=== PATIENT | female | born 1985 | race American Indian/Alaskan Native ===

== ENCOUNTER 2018-02-24 22:36 | Observation (INO) | payer BC ==
--- NOTE | 2018-02-24 23:14 | ED PDOC ---
Arrival/HPI <Josias Jones - Last Filed: 02/25/18 01:28> - General Historian: Patient <Luís Cano - Last Filed: 02/27/18 09:49> - General Chief Complaint: ENT Problem Time Seen by Provider: 02/24/18 23:07 - History of Present Illness Narrative History of Present Illness (Text): 02/24/18 23:08 33 y/o female, pmh including HIV, penicillin allergy, c/o throat pain x 5 days. Pt. stated that she has chronic HIV, stopped her HIV medication about 6 months ago with last CD4 count undetectable about 6 months ago, not been following with any one. Pt. stated that she has throat pain x 5 days, painful to swallow which she has hard eating due to the thrush and pain, has not been eating for the past 3 days, didn't see any doctor and here for the evaluation, no coughing , no night sweat, no rash, no numbness or tingling, no other medical or psychological complaints. (Luís Cano) Past Medical History - Provider Review Nursing Documentation Reviewed: Yes - Infectious Disease Hx of Infectious Diseases: None - Psychiatric Hx Substance Use: No - Anesthesia Hx Anesthesia: No Hx Anesthesia Reactions: No Hx Malignant Hyperthermia: No <Luís Cano - Last Filed: 02/27/18 09:49> Family/Social History - Physician Review Nursing Documentation Reviewed: Yes Family/Social History: Unknown Family HX Smoking Status: Current Some Days Smoker Hx Alcohol Use: Yes Hx Substance Use: No <Luís Cano - Last Filed: 02/27/18 09:49> Allergies/Home Meds <Josias Jones - Last Filed: 02/25/18 01:28> <Luís Cano - Last Filed: 02/27/18 09:49> Allergies/Adverse Reactions: Allergies pcn Adverse Reaction (Uncoded 02/24/18 22:57) RASH Home Medications: Home Meds Medication Instructions Recorded Confirmed Elviteg/Cob/Emtri/Tenof Alafen 1 tab PO DAILY 02/24/18 02/24/18 [Genvoya Tablet] Review of Systems - Review of Systems Constitutional: absent: Fatigue, Fevers Eyes: absent: Vision Changes ENT: Sore Throat. absent: Hearing Changes Respiratory: absent: SOB, Cough Cardiovascular: absent: Chest Pain Gastrointestinal: absent: Abdominal Pain, Nausea, Vomiting Musculoskeletal: absent: Arthralgias, Back Pain Skin: absent: Rash, Pruritis, Skin Lesions Psychiatric: absent: Anxiety, Depression, Suicidal Ideation <Luís Cano Q - Last Filed: 02/27/18 09:49> Physical Exam Vital Signs Reviewed: Yes Temperature: Afebrile Blood Pressure: Normal Pulse: Tachycardic Respiratory Rate: Normal Appearance: Positive for: Well-Appearing, Non-Toxic, Comfortable Pain Distress: Moderate Mental Status: Positive for: Alert and Oriented X 3 - Systems Exam Head: Present: Atraumatic, Normocephalic Pupils: Present: PERRL Extroacular Muscles: Present: EOMI Conjunctiva: Present: Normal Ears: Present: NORMAL TM, Normal Canal. No: Erythema Mouth: Present: Moist Mucous Membranes Pharnyx: Present: Other (+visible oral thrush noted from the roof of the palate to the pharyngeal region). No: ERYTHEMA, EXUDATE, TONSILS ENLARGED Nose (External): Present: Atraumatic. No: Abrasion, Contusion, Laceration Nose (Internal): Present: Normal Inspection, No Active Bleeding. No: Rhinorrhea , Septal Hematoma, Epistaxis Neck: Present: Normal Range of Motion, Trachea Midline. No: Meningeal Signs, MIDLINE TENDERNESS, Paraspinal Tenderness, Lymphadenopathy Respiratory/Chest: Present: Clear to Auscultation, Good Air Exchange. No: Respiratory Distress, Accessory Muscle Use Cardiovascular: Present: Regular Rate and Rhythm, Normal S1, S2. No: Murmurs Abdomen: No: Tenderness, Distention, Peritoneal Signs, Rebound, Guarding Back: Present: Normal Inspection Upper Extremity: Present: Normal Inspection. No: Cyanosis, Edema Lower Extremity: Present: Normal Inspection. No: Edema Neurological: Present: GCS=15, CN II-XII Intact, Speech Normal, Motor Func Grossly Intact, Gait Normal, Memory Normal Skin: Present: Warm, Dry, Normal Color. No: Rashes Psychiatric: Present: Alert, Oriented x 3, Normal Insight, Normal Concentration <Luís Cano Q - Last Filed: 02/27/18 09:49> Vital Signs Temp Pulse Resp BP Pulse Ox 02/25/18 04:42 98.4 F 64 18 108/66 100 02/25/18 03:04 97.9 F 81 18 128/65 100 02/25/18 00:59 98.4 F 74 18 113/69 100 02/24/18 22:51 98.6 F 108 H 19 109/77 98 Medical Decision Making <Josias Jones - Last Filed: 02/25/18 01:28> - Lab Interpretations I have reviewed the lab results: Yes - RAD Interpretation Summer Counselor: Radiologist <Luís Cano - Last Filed: 02/27/18 09:49> ED Course and Treatment: 02/24/18 23:19 Differential: Oral thrush vs. PCP pneumonia vs. sepsis -Labs/blood culture -Chest xray -IVF/toradol/nystatin -Observe and reassess 02/25/18 00:51 -Urine hcg is negative -Chest xray: No consolidation. -Labs are non-significant -UA show no UTI -Lactic acid within normal limit. -Pt. is po intolerance with oral thrush, HIV with CD4 likely uncontrolled as she has oral thrush, needs GI and infectious disease consult with continuous IV hydration. -Paging the medicine electronic systems security assessment Dr. Newman. 02/25/18 01:31 -I spoke to DR. Newman, about the case/labs/radiology result, request Dr. Olson (GI) and Dr. Varner (ID) for the consults, agreed with treatment and admission to her service -Dr. Jones will put in the admission order. -D5W with normal saline ordered. (Luís Cano) - Lab Interpretations Lab Results: 02/24/18 23:50 02/24/18 23:50 Lab Results 02/24/18 23:50: Urine Color Yellow, Urine Appearance Clear, Urine pH 6.0, Ur Specific Holmes >= 1.030, Urine Protein 30 H, Urine Glucose (UA) Negative, Urine Ketones 15 H, Urine Blood Negative, Urine Nitrate Negative, Urine Bilirubin Negative, Urine Urobilinogen 1.0 H, Ur Leukocyte Esterase Negative, Urine RBC 2 - 5, Urine WBC 0 - 2, Ur Epithelial Cells 6 - 8, Urine Bacteria Mod , Urine Other Mucus 02/24/18 23:50: pO2 57 H, VBG pH 7.37, VBG pCO2 36.0 L, VBG HCO3 20.8 L, VBG Total CO2 21.9 L, VBG O2 Sat (Calc) 91.0 H, VBG Base Excess -3.9 L, VBG Potassium 3.8, Sodium 147.0, Chloride 115.0 H, Glucose 86, Lactate 1.2, FiO2 21.0, Venous Blood Potassium 3.8 02/24/18 23:50: WBC 6.2, RBC 4.66, Hgb 12.8, Hct 35.8 L, MCV 76.8 L, MCH 27.5, MCHC 35.8, RDW 15.4 H, Plt Count 203, MPV 10.6, Gran % 47.0 L, Lymph % (Auto) 42.7 H, Roseau % (Auto) 7.7 H, Eos % (Auto) 2.4, Baso % (Auto) 0.2, Gran # 2.93, Lymph # (Auto) 2.7, Roseau # (Auto) 0.5, Eos # (Auto) 0.2, Baso # (Auto) 0.01 02/24/18 23:50: Sodium 149 H, Chloride 112 H, Potassium 3.8, Carbon Dioxide 19 L , Anion Gap 22 H, BUN 23 H, Creatinine 0.8, Est GFR ( Amer) > 60, Est GFR (Non-Af Amer) > 60, Random Glucose 90, Calcium 9.7, Magnesium 2.1, Total Bilirubin 0.7, AST 20, ALT 19, Alkaline Phosphatase 99, Total Protein 9.9 H, Albumin 5.0 H, Globulin 4.8, Albumin/Globulin Ratio 1.0 L - RAD Interpretation Radiology Orders: 02/24/18 23:15 CHEST TWO VIEWS (PA/LAT) [RAD] Stat Lungs: Unremarkable. No consolidation. Pleural space: Unremarkable. No pneumothorax. Heart: Unremarkable. No cardiomegaly. Mediastinum: Unremarkable. Bones/joints: Unremarkable. IMPRESSION: No consolidation. Thank you for allowing us to participate in the care of your patient. Dictated and Authenticated by: Stormy Vazquez MD 02/25/2018 12:49 AM Eastern Time ([place] & [place]) (Luís Cano) - Medication Orders Current Medication Orders: Discontinued Medications Al Hydrox/Mg Hydrox/Simethicone 30 ml/Diphenhydramine HCl 75 mg/Lidocaine 30 ml 0 ml PO Q2H PRN PRN Reason: Mouth/Throat Pain Last Admin: 02/26/18 09:10 Dose: 10 ml Fluconazole (Diflucan) 100 mg PO DAILY [facility] PRN Reason: Protocol Last Admin: 02/26/18 09:11 Dose: 100 mg Home Med (Home Med) 1 unit PO DAILY [facility] Last Admin: 02/26/18 09:11 Dose: Sodium Chloride (Sodium Chloride 0.9%) 1,000 mls @ 100 mls/hr IV .Q10H [facility] Last Admin: 02/25/18 00:40 Dose: 100 mls/hr eMAR Start Stop Document 02/25/18 00:40 (Rec: 02/25/18 00:41 [email or web address] Intravenous Solution Start Date 02/25/18 Start Time 00:40 Dextrose/Sodium Chloride (Dextrose 5%/0.45% Ns 1000 Ml) 1,000 mls @ 125 mls/hr IV .Q8H [facility] Last Admin: 02/26/18 09:11 Dose: Ketorolac Tromethamine (Toradol) 30 mg IVP STAT STA Stop: 02/24/18 23:16 Last Admin: 02/25/18 00:39 Dose: 30 mg [facility] Pain Assessment Document 02/25/18 00:39 (Rec: 02/25/18 00:40 [email or web address]) Pain Reassessment Is this a pain reassessment? No Sleep Is patient sleeping during reassessment? No Presence of Pain Presence of Pain Yes Pain Scale Used Pain Scale Used Numeric IVP Administration Document 02/25/18 00:39 (Rec: 02/25/18 00:40 [id number] Charges for Administration # of IVP Administrations 1 Re-Assess: MAR Pain Assessment Document 02/25/18 01:39 (Rec: 02/25/18 01:53 [email or web address]) Pain Reassessment Is this a pain reassessment? Yes Sleep Is patient sleeping during reassessment? No Presence of Pain Presence of Pain Yes Pain Scale Used Pain Scale Used Numeric Ketorolac Tromethamine (Toradol) 30 mg IVP STAT STA Stop: 02/25/18 09:32 Last Admin: 02/25/18 09:51 Dose: 30 mg MAR Pain Assessment Document 02/25/18 09:51 [place] (Rec: 02/25/18 09:51 [id number] Pain Reassessment Is this a pain reassessment? No Presence of Pain Presence of Pain Yes Pain Scale Used Pain Scale Used Numeric Location Pain Location Body Site Throat IVP Administration Document 02/25/18 09:51 SD (Rec: 02/25/18 09:51 [id number] Charges for Administration # of IVP Administrations 1 Re-Assess: MARLEN Pain Assessment Document 02/25/18 10:51 SD (Rec: 02/25/18 11:47 SD [id number]) Pain Reassessment Is this a pain reassessment? Yes Sleep Is patient sleeping during reassessment? Yes Nystatin (Nystatin Oral Susp) 5 ml PO QID KASH Nystatin (Nystatin Oral Susp) 5 ml PO STAT STA Stop: 02/25/18 00:20 Last Admin: 02/25/18 00:42 Dose: 5 ml Nystatin (Nystatin Oral Susp) 5 ml PO QID [facility]ASH Last Admin: 02/26/18 13:13 Dose: 5 ml Pneumococcal Polyvalent Vaccine (Pneumovax 23 Vaccine) 0.5 ml IM .ONCE ONE Stop: 02/25/18 09:16 Last Admin: 02/25/18 09:51 Dose: Immunization Registry Document 02/25/18 09:51 SD (Rec: 02/25/18 09:51 [id number] Immunization Registry Consent Date 02/24/18 - PA / BLEACH MIXER / Resident Statement GODFREY has reviewed & agrees with the documentation as recorded. GODFREY has examined the patient and agrees with the treatment plan. <Josias Jones - Last Filed: 02/25/18 01:28> - PA / BLEACH MIXER / Resident Statement GODFREY has reviewed & agrees with the documentation as recorded. GODFREY has examined the patient and agrees with the treatment plan. <Luís Cano - Last Filed: 02/27/18 09:49> Disposition/Present on Arrival <Josias Jones - Last Filed: 02/25/18 01:28> - Present on Arrival Any Indicators Present on Arrival: No History of DVT/PE: No History of Uncontrolled Diabetes: No Urinary Catheter: No History of Decub. Ulcer: No History Surgical Site Infection Following: None - Disposition Have Diagnosis and Disposition been Completed?: Yes Disposition Time: 23:20 Patient Plan: Admission, Observation <Luís Cano - Last Filed: 02/27/18 09:49> - Disposition Diagnosis: HIV (human immunodeficiency virus infection), Oral thrush, Odynophagia, Dysphagia Disposition: HOSPITALIZED Condition: STABLE
[2018-02-24] MEDS ORDERED: Sodium Chloride 0.9% 1,000 ML IV SCH (23:15)
[2018-02-25 00:06] LABS: BASO # 0.01 K/mm3 (0.0-2.0); BASO % 0.2 % (0.0-3.0); EOS # 0.2 (0.0-0.7); EOS % 2.4 % (1.5-5.0); GRAN # 2.93 (1.4-6.5); HEMOGLOBIN 12.8 g/dL (12.0-16.0); LYMPH # 2.7 (1.2-3.4); LYMPH % 42.7 % (22.0-35.0); MEAN CELL VOLUME 76.8 fl (80.0-105.0); MEAN CORPUSCULAR HEMOGLOBIN 27.5 pg (25.0-35.0); MEAN CORPUSCULAR HGB CONC 35.8 g/dl (31.0-37.0); MEAN PLATELET VOLUME 10.6 fl (7.0-11.0); MONO # 0.5 (0.1-0.6); MONO % 7.7 % (1.0-6.0); RBC 4.66 10^6/uL (3.5-6.1); RED CELL DISTRIBUTION WIDTH 15.4 % (11.5-14.5); VENOUS BLOOD GAS BASE EXCESS -3.9 mmol/L (0.0-2.0); VENOUS BLOOD GAS PO2 57 mm/Hg (30-55); VENOUS BLOOD PH 7.37 (7.32-7.43); WHITE BLOOD COUNT 6.2 10^3/ul (4.5-11.0)
[2018-02-25 00:07] LABS: URINE BILIRUBIN NEGATIVE (NEGATIVE); URINE BLOOD NEGATIVE (NEGATIVE); URINE GLUCOSE (UA) NEGATIVE (NEGATIVE); URINE LEUKOCYTE ESTERASE NEGATIVE Leu/uL (NEGATIVE); URINE PROTEIN 30 mg/dL (<30 mg/dL)
[2018-02-25 00:09] LABS: ALT/SGPT 19 U/L (7-56); AST/SGOT 20 U/L (14-36); BLOOD UREA NITROGEN 23 mg/dL (7-21); CALCIUM 9.7 mg/dL (8.4-10.5); GFR AFRICAN-AMERICAN > 60; GFR NON-AFRICAN AMERICAN > 60; URINE APPEARANCE CLEAR (CLEAR); URINE COLOR YELLOW (YELLOW)
[2018-02-25] MEDS ORDERED: Nystatin 100,000 Units/ml Oral Susp 5 ml UD PO STA (00:19)
[2018-02-25 00:35] LABS: URINE BACTERIA MOD (NEG); URINE WBC 0 - 2 /hpf (0-6)
[2018-02-25] MEDS: Dextrose 5%/0.45% NS 1,000 ML IV SCH ×3 (01:52→17:08)
[2018-02-25] MEDS ORDERED: Pneumococcal 23-Valent Vaccine IM ONE (09:15)
[2018-02-25] MEDS ORDERED: Nystatin 100,000 Units/ml Oral Susp 5 ml UD PO SCH (10:00)
--- NOTE | 2018-02-25 13:33 | CP.PCM.CON ---
History of Present Illness - History of Present Illness History of Present Illness: Infectious Disease Consultation: February 25, 2018 33 yo female with extensive PMHx of HIV and PCN allergy. Patient presenting with 5 days of throat pain with pain on swallowing and sign of oral thrush. Patient claims that she was CD4 count undetectable 6 months ago. The patient also claims that she stopped her HAART 6 months ago. She denies fevers, chills , nausea, cough, night sweats. PMHx: HIV (born with HIV) PCN allergy PSHx: none given Allergies: PCN - rash Social Hx: EtOH use Tobacco use No illicit drug use Active Medications Dextrose/Sodium Chloride (Dextrose 5%/0.45% Ns 1000 Ml) 1,000 mls @ 125 mls/hr IV .Q8H [facility] Last Admin: 02/25/18 09:52 Dose: Not Given Family Hx: none given ROS: No reported fevers, chills, nausea, vomiting, diarrhea, chest pain, abdominal pain, melena, hematuria, hematemesis, hematochezia, depression, anxiety, vision loss, hearing loss. Has Throat pain, difficulty swallowing. Past Patient History - Infectious Disease Hx of Infectious Diseases: None - Past Social History Smoking Status: Light Smoker < 10 Cigarettes Daily - HEENT Hx Difficulty Chewing: Yes (Thrush) - HEMATOLOGICAL/ONCOLOGICAL Hx AIDS: Yes - MUSCULOSKELETAL/RHEUMATOLOGICAL Hx Falls: No - PSYCHIATRIC Hx Substance Use: Yes - SURGICAL HISTORY Hx Surgeries: Yes (Cyst removal 4 years ago) - ANESTHESIA Hx Anesthesia: No Hx Anesthesia Reactions: No Hx Malignant Hyperthermia: No Meds Allergies/Adverse Reactions: Allergies Allergy/AdvReac Type Severity Reaction Status Date / Time pcn AdvReac RASH Uncoded 02/24/18 22:57 - Medications Medications: Current Medications Dextrose/Sodium Chloride (Dextrose 5%/0.45% Ns 1000 Ml) 1,000 mls @ 125 mls/hr IV .Q8H [facility] Last Admin: 02/25/18 09:52 Dose: Not Given Physical Exam - Constitutional Appears: Non-toxic, No Acute Distress, Chronically Ill - Head Exam Head Exam: ATRAUMATIC, NORMOCEPHALIC - Eye Exam Eye Exam: EOMI, PERRL Pupil Exam: NORMAL ACCOMODATION, PERRL - ENT Exam ENT Exam: Mucous Membranes Moist Additional comments: oral thrush on roof of palate to pharyngeal region to back of throat. Thick layering of thrush. - Neck Exam Neck exam: Positive for: Full Rom, Normal Inspection - Respiratory Exam Respiratory Exam: Clear to Auscultation Bilateral, NORMAL BREATHING PATTERN. absent: Rales, Rhonchi, Wheezes - Cardiovascular Exam Cardiovascular Exam: REGULAR RHYTHM, RRR, +S1, +S2 - GI/Abdominal Exam GI & Abdominal Exam: Normal Bowel Sounds, Soft. absent: Distended, Tenderness - Extremities Exam Extremities exam: Positive for: full ROM, normal inspection - Neurological Exam Neurological exam: Alert, CN II-XII Intact, Oriented x3 - Psychiatric Exam Psychiatric exam: Normal Affect, Normal Mood - Skin Skin Exam: Intact, Normal Color Results - Vital Signs Recent Vital Signs: Last Vital Signs Temp 97.9 F 02/25/18 08:36 Pulse 79 02/25/18 08:36 Resp 18 02/25/18 08:49 BP 112/69 02/25/18 08:36 Pulse Ox 100 02/25/18 08:36 - Labs Result Diagrams: 02/24/18 23:50 02/24/18 23:50 Assessment & Plan - Assessment and Plan (Free Text) Assessment: 33 yo female not on HARRT for HIV. The patient with oral thrush. The patient likely with uncontrolled HIV disease. Recently restarted Genvoya for HARRT therapy. Sees Dr. Delong in [place] for HIV care. Thick layer of oral thrush. Start Nystatin Swish and Swallow. Start Magic Mouthwash. Will contact Dr. Delong to see what her latest numbers are. She states she recently had this bloodwork done for HIV Viral load and CD4 count. Supportive care. Thank you for allowing me to participate in the care of the patient, we will follow with you.
[2018-02-25] MEDS ORDERED: Home Med 1 UNIT PO SCH (14:00)
[2018-02-25] MEDS: Nystatin 100,000 Units/ml Oral Susp 5 ml UD PO SCH ×3 (14:33→21:01)
[2018-02-25] MEDS: Aluminum Hydroxide/Magnesium 30 ML, DiphenhydrAMINE 75 MG, Lidocaine 2% Viscous 30 ML PO PRN ×2 (15:16→23:40)
--- NOTE | 2018-02-25 16:04 | CP.PCM.CON ---
<Oly Carrington - Last Filed: 02/25/18 16:00> History of Present Illness - History of Present Illness History of Present Illness: GI Fellow PGY5 Consult Note This is a 33 y/o female with pmhx of HIV noncompliant with medication for 6 months c/o throat pain x 5 days. Pt. stated that she has chronic HIV, stopped her HIV medication about 6 months ago with last CD4 count undetectable about 6 months ago, not been following with any one. She reports painful to swallow which she has hard eating due to the thrush and pain, has not been eating for the past 3 days, didn't see any doctor and here for the evaluation, no coughing , no night sweat, no rash, no numbness or tingling, no other medical or psychological complaints. ROS: A 12pt ROS was negative except as above PmHx: A sstated above PsHX: Denies FHx: Neg for colon cancer SHx: Denies etoh, drugs, tobacco Past Patient History - Infectious Disease Hx of Infectious Diseases: None - Past Social History Smoking Status: Light Smoker < 10 Cigarettes Daily - HEENT Hx Difficulty Chewing: Yes (Thrush) - HEMATOLOGICAL/ONCOLOGICAL Hx AIDS: Yes - MUSCULOSKELETAL/RHEUMATOLOGICAL Hx Falls: No - PSYCHIATRIC Hx Substance Use: Yes - SURGICAL HISTORY Hx Surgeries: Yes (Cyst removal 4 years ago) - ANESTHESIA Hx Anesthesia: No Hx Anesthesia Reactions: No Hx Malignant Hyperthermia: No Meds Allergies/Adverse Reactions: Allergies Allergy/AdvReac Type Severity Reaction Status Date / Time pcn AdvReac RASH Uncoded 02/24/18 22:57 - Medications Medications: Current Medications Al Hydrox/Mg Hydrox/Simethicone 30 ml/Diphenhydramine HCl 75 mg/Lidocaine 30 ml 0 ml PO Q2H PRN PRN Reason: Mouth/Throat Pain Last Admin: 02/25/18 15:16 Dose: 15 ml Home Med (Home Med) 1 unit PO DAILY [facility] Dextrose/Sodium Chloride (Dextrose 5%/0.45% Ns 1000 Ml) 1,000 mls @ 125 mls/hr IV .Q8H [facility] Last Admin: 02/25/18 09:52 Dose: Not Given Nystatin (Nystatin Oral Susp) 5 ml PO QID [facility] Last Admin: 02/25/18 14:33 Dose: 5 ml Physical Exam - Constitutional Appears: Non-toxic, No Acute Distress - Head Exam Head Exam: ATRAUMATIC, NORMAL INSPECTION, NORMOCEPHALIC - Eye Exam Eye Exam: EOMI, Normal appearance - ENT Exam ENT Exam: Mucous Membranes Moist Additional comments: oral thrush - Neck Exam Neck exam: Positive for: Full Rom - Respiratory Exam Respiratory Exam: Clear to Auscultation Bilateral, NORMAL BREATHING PATTERN - Cardiovascular Exam Cardiovascular Exam: REGULAR RHYTHM, RRR, +S1, +S2 - GI/Abdominal Exam GI & Abdominal Exam: Normal Bowel Sounds, Soft - Rectal Exam Rectal Exam: Deferred - Extremities Exam Extremities exam: Positive for: full ROM, normal inspection - Back Exam Back exam: NORMAL INSPECTION - Neurological Exam Neurological exam: Oriented x3 - Psychiatric Exam Psychiatric exam: Normal Affect, Normal Mood - Skin Skin Exam: Dry, Intact, Normal Color, Warm Results - Vital Signs Recent Vital Signs: Last Vital Signs Temp 98.1 F 02/25/18 15:36 Pulse 61 02/25/18 15:36 Resp 18 02/25/18 15:36 BP 108/64 02/25/18 15:36 Pulse Ox 99 02/25/18 15:36 - Labs Result Diagrams: 02/24/18 23:50 02/24/18 23:50 Assessment & Plan - Assessment and Plan (Free Text) Assessment: This is a 33yF with HIV presenting with oral thrush and dysphagia/odynophagia for 5 days. 1. Dysphagia/odynophagia 2. Oral thrush 3. HIV Plan: -Continue supportive care -Recommend ID cs -Start Diflucan 100mg tab daily for possible fungal infection of esophagus -Nystatin for oral thrush -ID cs -Monitor clinical course, if no improvement may need EGD for further evaluation -Will continue to follow closely <Mary Olson V - Last Filed: 02/25/18 21:29> Meds - Medications Medications: Current Medications Al Hydrox/Mg Hydrox/Simethicone 30 ml/Diphenhydramine HCl 75 mg/Lidocaine 30 ml 0 ml PO Q2H PRN PRN Reason: Mouth/Throat Pain Last Admin: 02/25/18 15:16 Dose: 15 ml Fluconazole (Diflucan) 100 mg PO DAILY [facility] PRN Reason: Protocol Last Admin: 02/25/18 17:08 Dose: 100 mg Home Med (Home Med) 1 unit PO DAILY [facility] Dextrose/Sodium Chloride (Dextrose 5%/0.45% Ns 1000 Ml) 1,000 mls @ 125 mls/hr IV .Q8H [facility] Last Admin: 02/25/18 17:08 Dose: 125 mls/hr Nystatin (Nystatin Oral Susp) 5 ml PO QID [facility] Last Admin: 02/25/18 21:01 Dose: 5 ml Results - Vital Signs Recent Vital Signs: Last Vital Signs Temp 98.1 F 02/25/18 15:36 Pulse 61 02/25/18 15:36 Resp 18 02/25/18 15:36 BP 108/64 02/25/18 15:36 Pulse Ox 99 02/25/18 15:36 - Labs Result Diagrams: 02/24/18 23:50 02/24/18 23:50 Attending/Attestation - Attestation I have personally seen and examined this patient.: Yes I have fully participated in the care of the patient.: Yes I have reviewed all pertinent clinical information: Yes Notes (Text): This is an addendum to GI consult report dictated by the GI Fellow.The patient was seen and examined earlier. Medical records, lab studies, imagings were reviewed. Last 24 hours events reviewed. Agreed with the above treatment plan as outlined in GI Fellow 's notes the with the addition of the following on examination patient has significant oral thrush Complains of odynophagia and dysphagia Poorly compliant Need ID evaluation and followup We'll consider EGD if patient fails to improve otherwise would recommend elective EGD 02/25/18 21:24
[2018-02-25 22:45] VITALS: O2SAT 100
[2018-02-26] MEDS: Dextrose 5%/0.45% NS 1,000 ML IV SCH ×2 (04:07→09:11)
[2018-02-26 08:06] LABS: BLOOD UREA NITROGEN 14 mg/dL (7-21); CALCIUM 8.7 mg/dL (8.4-10.5); GFR AFRICAN-AMERICAN > 60; GFR NON-AFRICAN AMERICAN > 60
[2018-02-26 08:23] VITALS: BP 103/64; PULSE 61; RESP 20; TEMP 97.4
[2018-02-26] MEDS: Aluminum Hydroxide/Magnesium 30 ML, DiphenhydrAMINE 75 MG, Lidocaine 2% Viscous 30 ML PO PRN (09:10)
[2018-02-26] MEDS: Nystatin 100,000 Units/ml Oral Susp 5 ml UD PO SCH ×2 (09:11→13:13)
[2018-02-26] MEDS ORDERED: Home Med 1 UNIT PO SCH (10:00)
--- NOTE | 2018-02-26 14:04 | CP.PCM.PN ---
<Oly Carrington - Last Filed: 02/26/18 14:01> Subjective - Date & Time of Evaluation Date of Evaluation: 02/26/18 Time of Evaluation: 11:00 - Subjective Subjective: GI Fellow PGY5 Progress Note Pt seen and evaluated at bedside, pt doing better no issues taking liquid diet. Pt requesting to go home. ROS: A 12pt ROS was negative except as above. Objective - Vital Signs/Intake and Output Vital Signs (last 24 hours): Temp Pulse Resp BP Pulse Ox 97.4 F L 61 20 103/64 100 02/26/18 06:00 02/26/18 06:00 02/26/18 06:00 02/26/18 06:00 02/26/18 06:00 Intake and Output: 02/26/18 02/26/18 06:59 18:59 Intake Total 1320 Balance 1320 - Medications Medications: Current Medications Al Hydrox/Mg Hydrox/Simethicone 30 ml/Diphenhydramine HCl 75 mg/Lidocaine 30 ml 0 ml PO Q2H PRN PRN Reason: Mouth/Throat Pain Last Admin: 02/26/18 09:10 Dose: 10 ml Fluconazole (Diflucan) 100 mg PO DAILY [facility], [facility]1983 PRN Reason: Protocol Last Admin: 02/26/18 09:11 Dose: 100 mg Home Med (Home Med) 1 unit PO DAILY [facility], [facility]1983 Last Admin: 02/26/18 09:11 Dose: Not Given Dextrose/Sodium Chloride (Dextrose 5%/0.45% Ns 1000 Ml) 1,000 mls @ 125 mls/hr IV .Q8H [facility], [facility]1983 Last Admin: 02/26/18 09:11 Dose: Not Given Nystatin (Nystatin Oral Susp) 5 ml PO QID [facility] Last Admin: 02/26/18 13:13 Dose: 5 ml - Labs Labs: 02/26/18 07:00 - Constitutional Appears: Non-toxic, No Acute Distress - Head Exam Head Exam: ATRAUMATIC, NORMAL INSPECTION, NORMOCEPHALIC - Eye Exam Eye Exam: EOMI, Normal appearance, PERRL Pupil Exam: NORMAL ACCOMODATION - ENT Exam ENT Exam: Mucous Membranes Moist, Normal Exam - Neck Exam Neck Exam: Full ROM, Normal Inspection - Respiratory Exam Respiratory Exam: Clear to Ausculation Bilateral, NORMAL BREATHING PATTERN - Cardiovascular Exam Cardiovascular Exam: REGULAR RHYTHM - GI/Abdominal Exam GI & Abdominal Exam: Soft, Normal Bowel Sounds - Rectal Exam Rectal Exam: Deferred - Extremities Exam Extremities Exam: Full ROM, Normal Inspection - Back Exam Back Exam: NORMAL INSPECTION - Neurological Exam Neurological Exam: Alert, Awake, Oriented x3 - Psychiatric Exam Psychiatric exam: Normal Affect, Normal Mood - Skin Skin Exam: Dry, Intact, Normal Color, Warm Assessment and Plan - Assessment and Plan (Free Text) Assessment: This is a 33yF with HIV presenting with oral thrush and dysphagia/odynophagia for 5 days. 1. Dysphagia/odynophagia 2. Oral thrush 3. HIV Plan: -Continue supportive care -Continue Diflucan 100mg tab daily for possible fungal infection of esophagus for two weeks -Nystatin for oral thrush -Advance to pureed diet -Monitor clinical course, if no improvement may need EGD for further evaluation as an outpt -ID for HIV treatment <Mary Olson V - Last Filed: 02/26/18 22:38> Objective - Vital Signs/Intake and Output Vital Signs (last 24 hours): Temp Pulse Resp BP Pulse Ox 97.4 F L 61 20 103/64 100 02/26/18 06:00 02/26/18 06:00 02/26/18 06:00 02/26/18 06:00 02/26/18 06:00 Intake and Output: 02/26/18 02/27/18 18:59 06:59 Intake Total 840 Balance 840 - Labs Labs: 02/26/18 07:00 Attending/Attestation - Attestation I have personally seen and examined this patient.: Yes I have fully participated in the care of the patient.: Yes I have reviewed all pertinent clinical information, including history, physical exam and plan: Yes Notes (Text): This is an addendum to GI progress report dictated by the GI Fellow.The patient was seen and examined earlier. Medical records, lab studies, imagings were reviewed. Last 24 hours events reviewed. Agreed with the above treatment plan as outlined in GI Fellow 's notes the with the addition of the following patient was able to tolerate liquid diet discussed with the nursing staff to increase the diet to puee diet with assistance On diflucan Patient would benefit from elective EGD earlier if patient remains symptomatic and no significant improvemnt with anti fungal therapy. Need ID followup 02/26/18 22:31
--- NOTE | 2018-02-26 16:37 | HP ---
DATE OF EXAM: 02/25/2018 HISTORY OF PRESENT ILLNESS: This 33-year-old female was examined at her bedside. She was admitted to the [facility] (Formerly [facility]) after presenting to the ER complaining of inability to swallow food or fluids for 5 days. Past history is significant for HIV, penicillin allergy and persistent throat pain for the past 5 days. She has chronic HIV. She stopped her HIV medications 6 months ago and discontinued her infectious disease followup. When she could no longer swallow or tolerate any p.o. food or fluids, she presented to ER and then was noted to have thrush involving her entire throat and posterior pharynx. She was admitted for further evaluation of the above and is ordered to receive consultations with Infectious Disease and GI. At present, she is receiving IV fluids. She is having great difficulty swallowing and has been ordered to have nystatin oral suspension 5 mL p.o. four times a day. OUTPATIENT MEDICATIONS: None. ALLERGIES: SHE ADMITS ALLERGY TO PENICILLIN. 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 She is a smoker, a social drinker. Denies IV substance abuse. REVIEW OF SYSTEMS: Constitutional review: Denied fever or chills. Head: No headache or seizure. Eye review: No change in visual acuity. Ear review: No hearing loss. Throat review: Great difficulty with swallowing any food, fluid or liquid. Cardiac review: No chest pain. Pulmonary: No cough. No hemoptysis. GI: No hematemesis. No melena. : No dysuria. Skin: No rash. Vascular: No claudication. Psychological: Alert. Denies anxiety. Neuro: No knowledge of stroke. PHYSICAL EXAMINATION: VITAL SIGNS: Temperature 98.1, respirations 18, pulse 61, blood pressure 108/64 with pulse ox 99% on room air. HEENT: Head: Normocephalic, atraumatic. Eyes: No icterus. Ears: Clear. Throat: Significant for thrush. NECK: Supple. HEART: S1, S2. LUNGS: Clear. ABDOMEN: Soft. EXTREMITIES: No edema. SKIN: No rash. VASCULAR: Legs warm to touch. PSYCHOLOGICAL: Alert and oriented x3. NEURO: Intact. LABORATORY DATA: White count 6200, hemoglobin 12.8, hematocrit 35.8, platelets 203,000. Sodium 149, K 3.8, chloride 112, bicarb 19, BUN 23, creatinine 0.8, random blood sugar 90, bilirubin 0.7, AST 20, ALT 19, alk phos 99. Urinalysis showed moderate bacteria. Chest x-ray was reviewed. It showed lungs are inflated and clear. There was no evidence of pleural effusion, no pneumothorax, no infiltrates. IMPRESSION: A 33-year-old female with history of human immunodeficiency virus, who discontinued medical followup and outpatient medications for her human immunodeficiency virus, now admitted with thrush and inability to swallow p.o. fluids with evidence of hypernatremia and mild clinical dehydration. PLAN: My plans at present are to obtain consultations with Dr. Benny Varner from Infectious Disease as well as Dr. Mary Olson from GI. She is ordered to have nystatin swish and swallow 5 mL p.o. four times a day, Diflucan 100 mg p.o. daily, dextrose D5 0.45 saline at 125 mL/hour. She will continue with Amphojel and lidocaine and Maalox swish and spit every 2 hours p.r.n. for oral hygiene relief. The patient will await GI evaluation for decision on dietary management. She is ordered to have a basic metabolic panel in the a.m. She is anxious for discharge and has been explained that this will need to be cleared by GI and Infectious Disease and greater than 75 minutes was spent in the care and management, review of labs, orders, x-rays and outlining of medical therapy for this patient today. All questions were answered. Bailey Newman MD MTDD
--- NOTE | 2018-02-26 16:58 | CP.PCM.PN ---
Subjective - Date & Time of Evaluation Date of Evaluation: 02/26/18 Time of Evaluation: 14:00 - Subjective Subjective: Infectious Disease Follow Up: February 26, 2018 33 yo female with extensive PMHx of HIV and PCN allergy. Patient presenting with 5 days of throat pain with pain on swallowing and sign of oral thrush. Patient claims that she was CD4 count undetectable 6 months ago. The patient also claims that she stopped her HAART 6 months ago. She denies fevers, chills , nausea, cough, night sweats. Mild improvement visually to thrush. Patient states less pain and a little easier to swallow now. Objective - Vital Signs/Intake and Output Vital Signs (last 24 hours): Temp Pulse Resp BP Pulse Ox 97.4 F L 61 20 103/64 100 02/26/18 06:00 02/26/18 06:00 02/26/18 06:00 02/26/18 06:00 02/26/18 06:00 Intake and Output: 02/26/18 02/26/18 06:59 18:59 Intake Total 1320 840 Balance 1320 840 - Labs Labs: 02/26/18 07:00 - Constitutional Appears: Non-toxic, No Acute Distress, Chronically Ill - Head Exam Head Exam: ATRAUMATIC, NORMOCEPHALIC - Eye Exam Eye Exam: EOMI, PERRL Pupil Exam: NORMAL ACCOMODATION, PERRL - ENT Exam ENT Exam: Mucous Membranes Moist, Normal External Ear Exam, TM's Normal Bilaterally - Neck Exam Neck Exam: Full ROM, Normal Inspection Additional comments: Still thick oral thrush on upper palate and posterior tongue. mild to moderate improvement compared to yesterday. - Respiratory Exam Respiratory Exam: Clear to Ausculation Bilateral, NORMAL BREATHING PATTERN. absent: Rales, Rhonchi, Wheezes - Cardiovascular Exam Cardiovascular Exam: REGULAR RHYTHM, RRR, +S1, +S2 - GI/Abdominal Exam GI & Abdominal Exam: Soft, Normal Bowel Sounds. absent: Distended, Tenderness - Extremities Exam Extremities Exam: Full ROM, Normal Inspection - Neurological Exam Neurological Exam: Alert, Awake, CN II-XII Intact, Oriented x3 - Psychiatric Exam Psychiatric exam: Normal Affect, Normal Mood - Skin Skin Exam: Intact, Normal Color Assessment and Plan - Assessment and Plan (Free Text) Assessment: 33 yo female not on HARRT for HIV. The patient with oral thrush. The patient likely with uncontrolled HIV disease. Recently restarted Genvoya for HARRT therapy. Sees Dr. Delong in [place] for HIV care. Thick layer of oral thrush. Start Nystatin Swish and Swallow. Start Magic Mouthwash. Will contact Dr. Delong to see what her latest numbers are. She states she recently had this bloodwork done for HIV Viral load and CD4 count. No response yet. Supportive care. Oral thrush with improvement. Patient is concerned for her job and wants to leave [facility]. She can be cleared for discharge with 10 days more of Nystatin S&S and Magic Mouthwash. Close follow up in outpatient setting. Will let Dr. Delong know. Thank you for allowing me to participate in the care of the patient, we will follow with you.
--- NOTE | 2018-02-26 19:59 | DS ---
The patient left [facility] on 02/26/2018. SUMMARY: This 33-year-old female who was admitted with HIV and dysphagia in the setting of oral thrush, was seen by Dr. Mary Olson from GI and Dr. Benny Varner from Infectious Disease and ordered to receive oral nystatin, Genvoya HIV medication from home as well as oral Diflucan and IV fluids. Despite the fact that the patient was not yet started on a clear liquid diet and observed for safety, she left the [facility] against medical advice. This was reviewed with her nurse, Tracy Chow. The patient walked off the floor. Bailey Newman MD MTDD
== END 2018-02-26 14:51 | disposition left against medical advice (07) ==
LOC: ED 22:36 → ERH 02-25 01:38 → 5RNO 02-25 05:11
PROVIDERS: ADMIT Internal Medicine; ATTEND Internal Medicine
DX: B37.0 Candidal stomatitis (principal); B20 Human immunodeficiency virus [HIV] disease; E86.0 Dehydration; R13.10 Dysphagia, unspecified; E87.0 Hyperosmolality and hypernatremia; F17.210 Nicotine dependence, cigarettes, uncomplicated; Z88.0 Allergy status to penicillin; Z91.14 Patient's other noncompliance with medication regimen
CPT/HCPCS: 36415; 71046; 80048; 80053; 81001; 81003; 82803; 83735; 85025; 96374; 99284; G0378; J1885; J7030; J7042